=== PATIENT | male | born 1945 | race Caucasian/White ===

== ENCOUNTER 2021-12-01 06:07 | Inpatient (IN) ==
[2021-12-01] MEDS ORDERED: Acetaminophen IV 1,000 MG/100 ML BAG IVPB ONE (06:34)
[2021-12-01] MEDS ORDERED: Famotidine 20 MG/2 ML VIAL IVP ONE (06:34)
[2021-12-01] MEDS ORDERED: tiZANidine 4 MG TABLET PO ONE (06:36)
[2021-12-01] MEDS ORDERED: Vancomycin 1,250 MG/262.5 ML IV.SOLN IVPB ONE ×2 (07:00→19:00)
[2021-12-01] MEDS ORDERED: Ringers Solution, Lactated 1,000 ML IVC SCH ×2 (07:00→18:16)
[2021-12-01] MEDS ORDERED: Lidocaine HCL 4 ML Topical Solution (Laryng-O-Jet Kit Sterile Pak) TP ONE (07:12)
[2021-12-01] MEDS ORDERED: *HR* Midazolam HCl 2 MG/2 ML VIAL ONE (07:12)
[2021-12-01] MEDS ORDERED: *HR* Succinylcholine 200 MG/10 ML VIAL IVP ONE (07:12)
[2021-12-01] MEDS ORDERED: Lidocaine -MPF 2% 2 ML VIAL ONE (07:12)
[2021-12-01] MEDS ORDERED: *HR* FentaNYL (PF) 100 MCG/2 ML VIAL ONE (07:12)
[2021-12-01] MEDS ORDERED: *HR* Rocuronium Bromide 50 MG/5 ML VIAL ONE (07:12)
[2021-12-01] MEDS ORDERED: Bupivacaine/EPI 1:200k 0.25% 50 ML VIAL ONE (07:12)
[2021-12-01] MEDS ORDERED: *HR* Propofol 200 MG/20 ML VIAL IVP ONE (07:12)
[2021-12-01] MEDS ORDERED: Vancomycin 1,000 MG VIAL ONE (07:12)
[2021-12-01] MEDS ORDERED: Ondansetron 4 MG/2 ML VIAL ONE (07:12)
[2021-12-01] MEDS ORDERED: *HR* Remifentanil 2 MG VIAL IVP ONE ×3 (07:35→12:42)
[2021-12-01] MEDS ORDERED: Neostigmine Methylsulfate 3 MG/3 ML SYRINGE ONE (08:40)
[2021-12-01] MEDS ORDERED: EPHEDrine 50 MG/ML VIAL ONE (12:55)
[2021-12-01] MEDS ORDERED: Ondansetron 4 MG/2 ML VIAL IVP PRN (15:18)
[2021-12-01] MEDS ORDERED: Ipratropium Neb 0.5 MG NEBULIZER IH PRN (15:18)
[2021-12-01] MEDS ORDERED: Albuterol 2.5 MG/3 ML NEBULIZER IH PRN (15:18)
[2021-12-01] MEDS ORDERED: *HR* FentaNYL (PF) 100 MCG/2 ML VIAL IVP PRN (15:18)
[2021-12-01] MEDS ORDERED: Racepinephrine Neb 0.5 ML VIAL IH PRN (15:18)
[2021-12-01] MEDS ORDERED: *HR* Labetalol 20 MG/4 ML SYRINGE IVP PRN (15:18)
[2021-12-01] MEDS ORDERED: Acetaminophen IV 1,000 MG/100 ML BAG IVPB PRN (15:18)
[2021-12-01] MEDS ORDERED: *HR* Meperidine 25 MG/ML SYRINGE IVP PRN (15:18)
[2021-12-01] MEDS ORDERED: *HR* OxyCODONE Immed Rel 5 MG TABLET PO PRN (15:18)
[2021-12-01] MEDS: *HR* HYDROmorphone PF 0.5 MG/0.5 ML SYRINGE IVP PRN ×2 (15:41→15:57)
[2021-12-01] MEDS ORDERED: *HR* Metformin 500 MG TABLET PO SCH (17:00)
[2021-12-01] MEDS ORDERED: Naloxone 0.4 MG/ML INJ IVP PRN (18:16)
[2021-12-01] MEDS: *HR* HYDROcodone/Acet 5/325 mg TABLET PO PRN (18:56)
[2021-12-02] MEDS: Acetaminophen 325 MG TABLET PO SCH ×4 (00:36→17:49)
[2021-12-02] MEDS: *HR* OxyCODONE Immed Rel 5 MG TABLET PO PRN ×3 (00:38→17:54)
[2021-12-02] MEDS ORDERED: *HR* Amiodarone 200 MG TABLET PO SCH (09:00)
[2021-12-02] MEDS ORDERED: lisinopriL 20 MG TABLET PO SCH (09:00)
[2021-12-02] MEDS ORDERED: amLODIPine 5 MG TABLET PO SCH (09:00)
[2021-12-02] MEDS ORDERED: Semaglutide [Ozempic] 1 MG/0.75 ML Pen.Injctr SUBQ SCH (11:15)
[2021-12-02] MEDS: *HR* HYDROcodone/Acet 5/325 mg TABLET PO PRN (12:23)
[2021-12-02] MEDS: *HR* Metformin 500 MG TABLET PO SCH (17:49)
[2021-12-02] MEDS: Cholecalciferol (D-3) 1,000 UNIT (25MCG) TABLET PO SCH (21:00)
[2021-12-02] MEDS: Latanoprost 2.5 ML BOTTLE BOTH EYES SCH (21:01)
[2021-12-03] MEDS: Acetaminophen 325 MG TABLET PO SCH ×5 (00:08→23:14)
[2021-12-03] MEDS: *HR* OxyCODONE Immed Rel 5 MG TABLET PO PRN ×2 (00:09→08:34)
[2021-12-03] MEDS: *HR* Amiodarone 200 MG TABLET PO SCH (08:32)
[2021-12-03] MEDS: Cyanocobalamin (B-12) 1,000 MCG TABLET PO SCH (08:33)
[2021-12-03] MEDS: *HR* Metformin 500 MG TABLET PO SCH ×2 (08:33→17:05)
[2021-12-03] MEDS: amLODIPine 5 MG TABLET PO SCH (08:34)
[2021-12-03] MEDS: Cholecalciferol (D-3) 1,000 UNIT (25MCG) TABLET PO SCH ×2 (08:34→20:26)
[2021-12-03] MEDS: lisinopriL 20 MG TABLET PO SCH (08:34)
[2021-12-03] MEDS: *HR* HYDROcodone/Acet 5/325 mg TABLET PO PRN ×2 (13:06→20:27)
[2021-12-03] MEDS: Latanoprost 2.5 ML BOTTLE BOTH EYES SCH (20:33)
[2021-12-04] MEDS: *HR* OxyCODONE Immed Rel 5 MG TABLET PO PRN (03:46)
[2021-12-04] MEDS: Acetaminophen 325 MG TABLET PO SCH ×2 (05:03→12:32)
[2021-12-04] MEDS ORDERED: *HR* Heparin 5,000 UNIT/ML VIAL SQ SCH ×2 (08:45)
[2021-12-04] MEDS ORDERED: calcitrioL 0.25 MCG CAPSULE PO SCH (09:00)
[2021-12-04] MEDS: amLODIPine 5 MG TABLET PO SCH (09:14)
[2021-12-04] MEDS: Cyanocobalamin (B-12) 1,000 MCG TABLET PO SCH (09:14)
[2021-12-04] MEDS: lisinopriL 20 MG TABLET PO SCH (09:14)
[2021-12-04] MEDS: *HR* Amiodarone 200 MG TABLET PO SCH (09:14)
[2021-12-04] MEDS: *HR* Metformin 500 MG TABLET PO SCH (09:15)
[2021-12-04] MEDS: Cholecalciferol (D-3) 1,000 UNIT (25MCG) TABLET PO SCH (09:15)
[2021-12-04 11:26] VITALS: BP 119/67; PULSE 66; TEMP 97.6; O2SAT 94
== END 2021-12-04 14:16 | DRG 460 ==
LOC: SDCAOSI 06:07 → 4WAOSI 13:57
PROVIDERS: ADMIT Student in an Organized Health Care Education/Training Program; ATTEND Student in an Organized Health Care Education/Training Program